=== PATIENT | male | born 1970 | race Two or more races ===

== ENCOUNTER 2017-03-18 19:18 | Emergency (ER) | payer OTHER ==
[2017-03-18 19:34] VITALS: BP 136/82; PULSE 74; RESP 16; TEMP 98; O2SAT 100
--- NOTE | 2017-03-18 20:06 | ED PDOC ---
HPI: Eye Injury/Pain Time Seen by Provider: 03/18/17 19:37 Chief Complaint (Nursing): Eye Problem Chief Complaint (Provider): Left eye redness History Per: Patient History/Exam Limitations: no limitations Onset/Duration Of Symptoms: Days (2) Current Symptoms Are (Timing): Still Present Additional Complaint(s): Patient is a 46 y/o male with a past medical history of diabetes presenting to the emergency department for left eye redness and irritation ongoing for two days. Reports that the irritation started when he woke up yesterday morning and has become progressively worse. Denies visual changes including double vision or cloudiness, light sensitivity, feeling of increased pressure in his eye, drainage, sick contacts, direct trauma to the eye, fever, headache, or other complaints. PCP: Dr. Lesvia Ortiz Past Medical History Reviewed: Historical Data, Nursing Documentation, Vital Signs Vital Signs: Last Vital Signs Temp 98.0 F 03/18/17 19:31 Pulse 74 03/18/17 19:31 Resp 16 03/18/17 19:31 BP 136/82 03/18/17 19:31 Pulse Ox 100 03/18/17 19:31 - Medical History PMH: Diabetes - Family History Family History: States: No Known Family Hx - Home Medications Home Medications: Ambulatory Orders Medication Instructions Recorded Polymyxin/Trimethoprim Sulfate 100 drop OD BID #1 bottle 03/18/17 [Polytrim Ophth Soln] - Allergies Allergies/Adverse Reactions: Allergies Allergy/AdvReac Type Severity Reaction Status Date / Time No Known Allergies Allergy Verified 03/18/17 19:31 Review of Systems ROS Statement: Except As Marked, All Systems Reviewed And Found Negative Constitutional: Negative for: Fever Eyes: Positive for: Redness (left eye, with irritation). Negative for: Vision Change, Other (photosensitivity, increase pressure, eye trauma) Neurological: Negative for: Headache Physical Exam - Reviewed Nursing Documentation Reviewed: Yes Vital Signs Reviewed: Yes - Physical Exam Appears: Positive for: Non-toxic, No Acute Distress Head Exam: Positive for: ATRAUMATIC, NORMAL INSPECTION, NORMOCEPHALIC Skin: Positive for: Normal Color, Warm, Dry Eye Exam: Positive for: EOMI, PERRL. Negative for: Other (no lid swelling, no fluorescein uptake, no foreign bodies noted. Mild drainage noted on the lacrimal edge) Neck: Positive for: Normal Cardiovascular/Chest: Positive for: Regular Rate, Rhythm Respiratory: Negative for: Accessory Muscle Use, Respiratory Distress Extremity: Positive for: Normal ROM Neurologic/Psych: Positive for: Alert, Oriented (x3) - ECG O2 Sat by Pulse Oximetry: 100 (RA) Pulse Ox Interpretation: Normal Medical Decision Making Medical Decision Makin:20 Patient is stable for discharge and requires no further treatment in the ED at this time. Patient will be discharged with RX for Polytrim Ophthalmic Solution. Clinical Impression: Conjunctivitis ~ Scribe Attestation: Documented by Tran Ayon, acting as a scribe for BRE Rodriguez. Provider Scribe Attestation: All medical record entries made by the Scribe were at my direction and personally dictated by me. I have reviewed the chart and agree that the record accurately reflects my personal performance of the history, physical exam, medical decision making, and the department course for this patient. I have also personally directed, reviewed, and agree with the discharge instructions and disposition. Disposition - Clinical Impression Clinical Impression: Conjunctivitis - Patient ED Disposition Is Patient to be Admitted: No Doctor Will See Patient In The: Office Counseled Patient/Family Regarding: Diagnosis, Rx Given - Disposition Disposition: Routine/Home Disposition Time: 20:20 Condition: STABLE Prescriptions: Polymyxin/Trimethoprim Sulfate [Polytrim Ophth Soln] 100 drop OD BID #1 bottle Instructions: Conjunctivitis (ED) Forms: [email or web address] (Green[place]ic)
== END 2017-03-18 20:30 | disposition home or self-care (01) ==
LOC: H.ER 19:18
DX: H10.9 Unspecified conjunctivitis (principal); E11.9 Type 2 diabetes mellitus without complications